=== PATIENT | female | born 1965 | race Caucasian/White ===

== ENCOUNTER 2024-08-08 05:58 | Day surgery (SDC) | payer BC ==
[2024-08-08 06:22] VITALS: RESP 18
[2024-08-08] MEDS: Lactated Ringers 1,000 ML IV SCH (06:25)
[2024-08-08] MEDS ORDERED: propofoL IV ONE ×2 (06:48→07:17)
[2024-08-08] MEDS ORDERED: Versed 2 MG/2 ML Injection ONE (06:48)
[2024-08-08 07:53] VITALS: BP 120/80; O2SAT 97
[2024-08-08 08:04] VITALS: PULSE 63; TEMP 98.1
--- NOTE | 2024-08-09 11:09 | OP ---
SURGERY DATE/TIME: 08/08/2024 [id number] PREOPERATIVE DIAGNOSIS: Positive Cologuard. POSTOPERATIVE DIAGNOSIS: Polyps noted in the proximal transverse colon, mid transverse colon, and sigmoid colon. PROCEDURE: Colonoscopy. SURGEON: Pepito Lara MD. DESCRIPTION OF PROCEDURE AND FINDINGS: These were addressed respectively by the use of cold forceps biopsy instruments on the first 2 and hot polypectomy snare on the third as it was larger. The polyp segments were retrieved and sent to Pathology for evaluation. With no other polyps being noted, the scope was removed from the patient who tolerated the procedure well and was sent back to outpatient recovery in good condition. The prep was noted to be fair.
== END 2024-08-08 08:10 | disposition home or self-care (01) ==
LOC: SDC 05:58
PROVIDERS: ATTEND Family Medicine
DX: D12.5 Benign neoplasm of sigmoid colon (principal); D12.3 Benign neoplasm of transverse colon; R19.5 Other fecal abnormalities
CPT/HCPCS: J2250; J2704